=== PATIENT | female | born 1950 | race African-American/Black ===

== ENCOUNTER 2019-12-04 09:02 | Emergency (ER) | payer SELFPAY ==
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
--- OUTSIDE RECORDS SUMMARY | 2019-12-04 09:50 | XMS REPORT | Continuity of Care Document ---
:1950 Author Organization [facility] t Address [address] [place] [address] Care Team Providers Name Role Phone Unavailable Unavailable Unavailable Problems Condition Condition Condition Status Onset Resolution Last Treating Co mments Source Name Details Category Date Date Treatment Clinician Date Menopausal Menopausal Problem Active [facility] syndrome Syndrome 12-20 da 00:00: Medical 00 Group Adult Adult Problem Active [facility] 12-20 da examinatio Examinatio 00:00: Me dical n n 00 Group Goiter Goiter Problem Active [facility] Essential Essential Problem Active [facility] hypertensi Hypertensi [facility] Pain in Pain in Problem Active [facility] lower [facility] Allergies, Adverse Reactions, Alerts This patient has no known allergies or adverse reactions. Social History Smoking Status Start Date Stop Date Source Never Smoker [facility] Medications Ordered Filled Start Stop Current Ordering Indication Dosage Frequency Signature Comments Components Source Medication Medication Date Date Medication? Clinician (SIG) Name Name Aspir-81 Aspir-81 No Aspir-81 [facility] atenolol 50 atenolol 50 No atenolol [facility] 50 d a lidone 25 lidone 25 [facility] tablet mg tablet alidone 25 Group TAKE 1 TAKE 1 mg tablet TABLET BY TABLET BY TAKE 1 MOUTH EVERY MOUTH EVERY TABLET BY DAY FOR DAY FOR MOUTH HYPERTENSIO HYPERTENSIO EVERY DAY N N FOR HYPERTENSI ON Vital Signs Vital Name Observation Time Observation Value Comments Source BP Diastolic 2019-07-10 00:00:00 88 mm[Hg] [facility] Height 2019-07-10 00:00:00 66 [in_i] [facility] BMI (Body Mass 2019-07-10 00:00:00 27.8 kg/m2 [facility] BP Systolic 2019-07-10 00:00:00 178 mm[Hg] [facility] Body Weight 2019-07-10 00:00:00 2752 [oz_av] [facility] BP Diastolic 2018-12-20 00:00:00 97 mm[Hg] [facility] Height 2018-12-20 00:00:00 66 [in_i] [facility] BMI (Body Mass 2018-12-20 00:00:00 27.3 kg/m2 [facility] BP Systolic 2018-12-20 00:00:00 169 mm[Hg] [facility] Body Weight 2018-12-20 00:00:00 2704 [oz_av] [facility] Procedures Procedure Date / Time Performed Performing Clinician Sour e MAMMO, screening, 2018-12-20 00:00:00 [facility], bilateral Group unlisted imaging order 2018-12-20 00:00:00 [facility] Colonoscopy 2005-07-02 00:00:00 [facility] Tubal L[facility] Plan of Care Planned Activity Planned Date Details Comments Source Future Appointment 2020-01-08 [facility] 14:15:00 [facility] [address]; [place] [address] Encounters Start End Encounter Admission Attending Care Care Encounter Source Date/Time Date/Time Type Type Clinicians Facility Department ID 2019-07-10 2019-07-10 Raman KELSEY [place] - [id number] [facility] 00:00:00 00:00:00 MD Luis: [facility] [address], [facility] [place] [facility] [place] [address] , Ph. 2018-12-20 2018-12-20 Raman KELSEY [place] - [id number] [facility] 00:00:00 00:00:00 MD Luis: [facility] [address] [place] [address], [place] [facility] [address], [facility] [place] [address] , Ph. Results This patient has no known results.
[2019-12-04 10:09] VITALS: BP 161/82; TEMP 98.4; O2SAT 99
== END 2019-12-04 10:03 | disposition home or self-care (01) ==
LOC: ER 09:02
DX: Z04.1 Encounter for examination and observation following transport accident (principal)
CPT/HCPCS: 99283